=== PATIENT | female | born 1965 | race African-American/Black ===

== ENCOUNTER 2018-01-10 11:55 | Inpatient (IN) | payer MEDICAID, MEDICARE ==
[~2018-01-10] VITALS: Ht 165.1 cm; Wt 51.7 kg
[~2018-01-10 11:55] MED LIST: HYDROCHLOROTHIAZIDE
[2018-01-10 13:08] LABS: BASOPHILS % 0.8 % (0.0-2.0); EOSINOPHILS % 0.6 % (0.0-5.0); HEMATOCRIT. 34.6 % (36.0-48.0); HEMOGLOBIN. 11.8 g/dL (12.0-16.0); LYMPHOCYTES % 18.8 % (20.0-50.0); MEAN CORPUSCULAR HEMOGLOBIN 35.3 pg (28.0-32.0); MEAN CORPUSCULAR VOLUME 103.5 fL (81.0-99.0); MEAN PLATELET VOLUME 7.8 fl (7.4-10.4); MONOCYTES % 13.4 % (2.0-8.0); NEUTROPHILS % 66.4 % (40.0-76.0); PLATELET 220 x1000/uL (130-400); RED BLOOD CELL COUNT 3.35 mill/uL (4.2-5.4); RED CELL DISTRIBUTION WIDTH 16.5 % (11.6-14.6)
[2018-01-10 13:12] LABS: INR 0.9; PROTHROMBIN TIME 9.1 sec (9.4-11.6)
[2018-01-10 13:22] LABS: CHLORIDE 97 mEq/L (98-107)
[2018-01-10] MEDS ORDERED: SODIUM CHLORIDE 0.9% 1,000 ML IV ONE ×2 (15:15)
[2018-01-10 16:30] LABS: BASOPHILS % 0.8 % (0.0-2.0); EOSINOPHILS % 0.7 % (0.0-5.0); HEMATOCRIT. 35.4 % (36.0-48.0); HEMOGLOBIN. 12.1 g/dL (12.0-16.0); LYMPHOCYTES % 21.8 % (20.0-50.0); MEAN CORPUSCULAR HEMOGLOBIN 35.7 pg (28.0-32.0); MEAN CORPUSCULAR VOLUME 104.5 fL (81.0-99.0); MEAN PLATELET VOLUME 8.2 fl (7.4-10.4); NEUTROPHILS % 64.7 % (40.0-76.0); PLATELET 217 x1000/uL (130-400); RED BLOOD CELL COUNT 3.39 mill/uL (4.2-5.4); RED CELL DISTRIBUTION WIDTH 16.4 % (11.6-14.6)
[2018-01-10 16:31] LABS: CHLORIDE 97 mEq/L (98-107)
[2018-01-10] MEDS ORDERED: IOHEXOL-300 100 ML BOTTLE ONE ×2 (16:51→20:07)
[2018-01-10] MEDS ORDERED: DIPHENHYDRAMINE 50MG/ML VIAL IV PRN (19:15)
[2018-01-10] MEDS ORDERED: NA PHOS,M-B/NA PHOS,DI-BA ENEMA 118ML PR PRN (19:15)
[2018-01-10] MEDS ORDERED: ACETAMINOPHEN 325MG TABLET PO PRN (19:15)
[2018-01-10] MEDS ORDERED: DOCUSATE SODIUM 100MG CAPSULE PO PRN (19:15)
[2018-01-10] MEDS ORDERED: ONDANSETRON HCL 4MG/2ML VIAL IV PRN (19:15)
[2018-01-10] MEDS ORDERED: MAGNESIUM/ALUMINUM HYDROXIDE/SIMETHICONE 30ML UDC PO PRN (19:15)
[2018-01-10] MEDS ORDERED: CLONIDINE 0.1MG TABLET PO PRN (19:15)
[2018-01-10] MEDS ORDERED: GUAIFENESIN 200MG/10ML SUGAR FREE UDC PO PRN (19:15)
[2018-01-10] MEDS ORDERED: NITROGLYCERIN 0.4MG TABLET SL SL PRN (19:15)
[2018-01-10] MEDS ORDERED: LORAZEPAM 0.5MG TABLET PO PRN (19:15)
[2018-01-10 20:11] LABS: PHENCYCLIDINE URINE SCREEN NEGATIVE (NEGATIVE)
[2018-01-10 20:12] LABS: *AMPHETAMINES SCREEN URINE NEGATIVE (NEGATIVE); *BARBITURATES SCREEN URINE NEGATIVE (NEGATIVE); *BENZODIAZEPINES SCREEN URINE NEGATIVE (NEGATIVE); *COCAINE SCREEN URINE NEGATIVE (NEGATIVE); CANNABINOID URINE SCREEN PRESUMTIVE POSITIVE (NEGATIVE); METHADONE URINE SCREEN NEGATIVE (NEGATIVE); OPIATES URINE SCREEN NEGATIVE (NEGATIVE)
[2018-01-10 20:15] LABS: HEPATITIS B SURFACE ANTIGEN NEGATIVE
[2018-01-10 20:43] LABS: HEPATITIS B CORE AB IGM NEGATIVE
[2018-01-10 20:44] LABS: HEPATITIS A AB IGM NEGATIVE (NEGATIVE)
[2018-01-10] MEDS ORDERED: ZOLPIDEM TARTRATE 5MG TABLET PO PRN (21:00)
[2018-01-10 23:29] LABS: TOTAL IRON BINDING CAPACITY 242 ug/dL (250-450)
[2018-01-10 23:44] LABS: FOLIC ACID (FOLATE) SERUM 6.1 ng/mL (>5.38)
[2018-01-11] MEDS ORDERED: KCL 20MEQ/100ML PREMIX 100 ML IV SCH (03:00)
[2018-01-11 04:00] VITALS: BP 111/68
[2018-01-11] MEDS: TRAMADOL 50MG TABLET PO PRN (04:27)
[2018-01-11] MEDS: SUCRALFATE 1 G/10 ML UDC PO SCH ×4 (06:28→21:54)
[2018-01-11 08:00] VITALS: BP 145/98
[2018-01-11] MEDS ORDERED: FAMOTIDINE 20MG TABLET PO SCH ×2 (09:00)
[2018-01-11] MEDS ORDERED: ENOXAPARIN 40MG/0.4ML SYR SUBCUT SCH (09:00)
[2018-01-11] MEDS: IPRATROPIUM/ALBUTEROL 0.5-3(2.5)MG/3ML NEB INH PRN (10:18)
[2018-01-11 12:00] VITALS: BP 112/78
[2018-01-11 16:00] VITALS: BP 96/55
[2018-01-11 20:00] VITALS: BP 102/64
[2018-01-11] MEDS: PANTOPRAZOLE SODIUM 40 MG/VIAL IV SCH (21:54)
[2018-01-12] VITALS: BP 110/62
[2018-01-12 04:00] VITALS: BP 97/60
[2018-01-12] MEDS: TRAMADOL 50MG TABLET PO PRN (05:12)
[2018-01-12] MEDS: SUCRALFATE 1 G/10 ML UDC PO SCH ×4 (07:10→21:12)
[2018-01-12 08:43] LABS: HEMATOCRIT 36.5 % (36.0-48.0); HEMOGLOBIN 12.3 g/dL (12.0-16.0); MEAN CORPUSCULAR HEMOGLOBIN 35.6 pg (28.0-32.0); MEAN CORPUSCULAR VOLUME 105.7 fL (81.0-99.0); PLATELET 223 x1000/uL (130-400); RED BLOOD CELL COUNT 3.46 mill/uL (4.2-5.4); RED CELL DISTRIBUTION WIDTH 15.9 % (11.6-14.6)
[2018-01-12 08:50] LABS: INR 0.9; PROTHROMBIN TIME 9.9 sec (9.4-11.6)
[2018-01-12] MEDS: PANTOPRAZOLE SODIUM 40 MG/VIAL IV SCH ×2 (09:40→21:12)
[2018-01-12 10:11] LABS: CHLORIDE 97 mEq/L (98-107)
[2018-01-12] MEDS ORDERED: STERILE WATER FOR INJECTION 10ML VIAL ONE (15:26)
[2018-01-12] MEDS ORDERED: SIMETHICONE 40 MG/0.6 ML 30ML ONE (15:26)
[2018-01-12] MEDS ORDERED: FENTANYL CITRATE/PF 50MCG/ML 2ML VIAL ONE (15:31)
[2018-01-12] MEDS ORDERED: MIDAZOLAM HCL 5 MG/5 ML VIAL ONE (15:31)
[2018-01-12] MEDS ORDERED: MIDAZOLAM HCL 2 MG/2 ML VIAL IV PRN (15:32)
[2018-01-12] MEDS ORDERED: FENTANYL CITRATE/PF 50MCG/ML 2ML VIAL IV PRN (15:33)
[2018-01-12 20:00] VITALS: BP 100/60
[2018-01-13] VITALS: BP 110/60
[2018-01-13] MEDS: TRAMADOL 50MG TABLET PO PRN (02:12)
[2018-01-13 04:00] VITALS: BP 106/77
[2018-01-13] MEDS: IPRATROPIUM/ALBUTEROL 0.5-3(2.5)MG/3ML NEB INH PRN (05:32)
[2018-01-13] MEDS: SUCRALFATE 1 G/10 ML UDC PO SCH (06:25)
[2018-01-13 11:24] VITALS: BP 124/82
== END 2018-01-13 11:39 | disposition home or self-care (01) | DRG 241 ==
LOC: ER 11:55 → 6EST 17:48 → EDBEDREQ 18:02 → ENRESERV 18:35 → EDBEDREQSVC 20:16 → SUPCPDRO 22:31 → ENRESERV 01-11 00:02 → EDBEDREQSVC 01-11 01:52
PROVIDERS: ADMIT Internal Medicine; ATTEND Internal Medicine
PROC: 0DB48ZX Excision of Esophagogastric Junction, Via Natural or Artificial Opening Endoscopic, Diagnostic (ICD-10-PCS; principal; 2018-01-12 16:30)
DX: K29.70 Gastritis, unspecified, without bleeding (principal); N17.9 Acute kidney failure, unspecified; K76.0 Fatty (change of) liver, not elsewhere classified; R13.10 Dysphagia, unspecified; F20.9 Schizophrenia, unspecified; I10 Essential (primary) hypertension; D50.9 Iron deficiency anemia, unspecified; F10.10 Alcohol abuse, uncomplicated; R74.0 Nonspecific elevation of levels of transaminase and lactic acid dehydrogenase [LDH]; E87.6 Hypokalemia; J45.909 Unspecified asthma, uncomplicated; K70.9 Alcoholic liver disease, unspecified; D25.9 Leiomyoma of uterus, unspecified; F17.210 Nicotine dependence, cigarettes, uncomplicated; Z90.49 Acquired absence of other specified parts of digestive tract; Z79.899 Other long term (current) drug therapy; Z71.6 Tobacco abuse counseling; Z71.89 Other specified counseling
CPT/HCPCS: 36415; 70360; 71045; 71260; 74177; 80048; 80053; 80061; 80305; 82607; 82746; 83036; 83540; 83550; 85025; 85027; 85610; 85730; 86703; 86705; 86709; 86803; 87340; 88305; 88312; 88313; 93005; 96365; 99285; A4216; C9113; G0482; J1200; J1650; J2250; J2405; J3010; J3480; J7030; J7620; Q9967

== ENCOUNTER 2018-08-16 20:18 | Emergency (ER) | payer MEDICARE, MEDICAID ==
[~2018-08-16] VITALS: Ht 167.6 cm; Wt 59.0 kg
[2018-08-17] MEDS ORDERED: HYDROCODONE/ACETAMINOPHEN 5/325MG TABLET PO ONE (04:30)
[2018-08-17 06:00] VITALS: BP 138/92
== END 2018-08-17 06:29 | disposition home or self-care (01) ==
LOC: ER 20:18
DX: M25.562 Pain in left knee (principal); I10 Essential (primary) hypertension; W01.0XXA Fall on same level from slipping, tripping and stumbling without subsequent striking against object, initial encounter; Y93.9 Activity, unspecified; Y92.9 Unspecified place or not applicable
CPT/HCPCS: 73562; 81025; 99283; L1830

== ENCOUNTER 2019-01-10 16:58 | Emergency (ER) | payer MEDICARE, MEDICAID ==
[~2019-01-10] VITALS: Ht 165.1 cm; Wt 63.0 kg
[~2019-01-10 16:58] MED LIST changes: +MIRT15TA6 MT; +RISP0.5T19 MT
[2019-01-10] MEDS ORDERED: IBUPROFEN 600MG TABLET PO ONE (18:30)
[2019-01-10 18:40] VITALS: BP 161/118
== END 2019-01-10 19:27 | disposition home or self-care (01) ==
LOC: ER 16:58
DX: S99.822A Other specified injuries of left foot, initial encounter (principal); I10 Essential (primary) hypertension; Y93.11 Activity, swimming; Y92.832 Beach as the place of occurrence of the external cause; Z88.8 Allergy status to other drugs, medicaments and biological substances
CPT/HCPCS: 73630; 99283

== ENCOUNTER 2019-07-08 09:27 | Emergency (ER) | payer MEDICARE, MEDICAID ==
[~2019-07-08] VITALS: Ht 152.4 cm; Wt 65.0 kg
[2019-07-08 10:05] VITALS: BP 144/93
[2019-07-08] MEDS ORDERED: ACETAMINOPHEN 500MG TABLET PO ONE (10:45)
== END 2019-07-08 11:11 | disposition home or self-care (01) ==
LOC: ER 09:27
DX: M25.461 Effusion, right knee (principal); I10 Essential (primary) hypertension; Z88.8 Allergy status to other drugs, medicaments and biological substances; X50.1XXA Overexertion from prolonged static or awkward postures, initial encounter; Y93.41 Activity, dancing; Y92.018 Other place in single-family (private) house as the place of occurrence of the external cause
CPT/HCPCS: 73562; 99283

== ENCOUNTER 2019-12-19 11:54 | Emergency (ER) | payer MEDICARE, MEDICAID ==
[~2019-12-19] VITALS: Ht 165.1 cm; Wt 60.0 kg
[2019-12-19] MEDS ORDERED: CYCLOBENZAPRINE 10MG TABLET PO ONE (12:15)
[2019-12-19] MEDS ORDERED: KETOROLAC 60MG/2ML VIAL IM STA (12:15)
[2019-12-19 12:35] VITALS: BP 116/89
[2019-12-19 13:08] LABS: CLARITY URINE CLEAR (CLEAR); COLOR URINE YELLOW (YELLOW); KETONES URINE NEGATIVE (NEGATIVE); LEUKOCYTE ESTERASE URINE TRACE (NEGATIVE); NITRITE URINE POSITIVE (NEGATIVE); OCCULT BLOOD URINE NEGATIVE (NEGATIVE); PROTEIN URINE NEGATIVE (NEGATIVE); SPECIFIC GRAVITY URINE 1.009 (1.005-1.030); UROBILINOGEN URINE 0.2 E.U./dL (0.2-1.0)
== END 2019-12-19 13:35 | disposition home or self-care (01) ==
LOC: ER 11:54
DX: S39.011A Strain of muscle, fascia and tendon of abdomen, initial encounter (principal); X50.3XXA Overexertion from repetitive movements, initial encounter; X50.1XXA Overexertion from prolonged static or awkward postures, initial encounter; I10 Essential (primary) hypertension; F32.9 Major depressive disorder, single episode, unspecified; Y93.89 Activity, other specified; Y92.9 Unspecified place or not applicable; Z88.8 Allergy status to other drugs, medicaments and biological substances; Z98.890 Other specified postprocedural states
CPT/HCPCS: 81003; 96372; 99283; J1885

== ENCOUNTER 2020-01-22 17:01 | Inpatient (IN) | payer MEDICARE, MEDICAID ==
[~2020-01-22] VITALS: Ht 165.1 cm; Wt 55.0 kg
[2020-01-22] MEDS ORDERED: ONDANSETRON HCL 4MG/2ML INJ IV ONE (18:00)
[2020-01-22] MEDS ORDERED: SODIUM CHLORIDE 0.9% 1,000 ML IV ONE (18:25)
[2020-01-22] MEDS ORDERED: MORPHINE SULFATE 4 MG/ML CPJ (NOT FOR IM USE) IV STA (18:25)
[2020-01-22] MEDS ORDERED: ONDANSETRON HCL 4MG/2ML INJ IV STA (18:25)
[2020-01-22] MEDS ORDERED: FAMOTIDINE 20MG/2ML VIAL IV STA (18:25)
[2020-01-22 18:37] LABS: CLARITY URINE CLOUDY (CLEAR); COLOR URINE DARK YELLOW (YELLOW); KETONES URINE TRACE (NEGATIVE); LEUKOCYTE ESTERASE URINE TRACE (NEGATIVE); NITRITE URINE POSITIVE (NEGATIVE); OCCULT BLOOD URINE 1+ (NEGATIVE); PH URINE 5.5 (4.5-8.0); PROTEIN URINE 3+ (NEGATIVE)
[2020-01-22 18:59] LABS: BASOPHILS % 0.5 % (0.0-2.0); HEMATOCRIT. 38.2 % (36.0-48.0); HEMOGLOBIN. 13.2 g/dL (12.0-16.0); LYMPHOCYTES % 14.4 % (20.0-50.0); MEAN CORPUSCULAR VOLUME 104.1 fL (81.0-99.0); MONOCYTES % 7.6 % (2.0-8.0); NEUTROPHILS % 77.5 % (40.0-76.0); PLATELET 200 x1000/uL (130-400); RED BLOOD CELL COUNT 3.67 mill/uL (4.2-5.4); RED CELL DISTRIBUTION WIDTH 16.2 % (11.6-14.6)
[2020-01-22 19:05] LABS: CHLORIDE 92 mEq/L (98-107)
[2020-01-22 19:09] LABS: INR 0.9; PROTHROMBIN TIME 9.8 sec (9.6-11.0)
[2020-01-22] MEDS ORDERED: KCL 10MEQ/50ML PREMIX 50 ML IV ONE (19:30)
[2020-01-22] MEDS ORDERED: POTASSIUM CHLORIDE 20MEQ TABLET SR PO ONE (19:30)
[2020-01-22] MEDS ORDERED: CEFTRIAXONE 1 G PREMIX 50 ML IV ONE (21:15)
[2020-01-22] MEDS ORDERED: ONDANSETRON HCL 4MG/2ML INJ IV NR (22:45)
[2020-01-22] MEDS ORDERED: FAMOTIDINE 20MG/2ML VIAL IV NR (22:45)
[2020-01-22] MEDS ORDERED: MORPHINE SULFATE 4 MG/ML CPJ (NOT FOR IM USE) IV NR (22:45)
[2020-01-22 23:25] VITALS: BP 151/99
[2020-01-23] MEDS ORDERED: IBUP-2030 PO (00:18)
[2020-01-23] MEDS ORDERED: ESCI10TA PO (00:18)
[2020-01-23] MEDS ORDERED: HYDR25TA PO (00:18)
[2020-01-23] MEDS ORDERED: NAPR-681 PO (00:18)
[2020-01-23] MEDS: FOLIC ACID 1 MG, THIAMINE HCL 100 MG, MVI, ADULT NO.1 10 ML in DEXTROSE 5% WATER 1,000 ML IV SCH ×4 (03:12)
[2020-01-23 04:00] VITALS: BP 148/78
[2020-01-23] MEDS: MORPHINE SULFATE 2 MG/ML CPJ (NOT FOR IM USE) IV PRN ×2 (06:04→21:24)
[2020-01-23 07:09] LABS: HEMATOCRIT 34.1 % (36.0-48.0); HEMOGLOBIN 11.6 g/dL (12.0-16.0); MEAN CORPUSCULAR HEMOGLOBIN 35.3 pg (28.0-32.0); MEAN CORPUSCULAR VOLUME 103.3 fL (81.0-99.0); PLATELET 156 x1000/uL (130-400); RED CELL DISTRIBUTION WIDTH 15.7 % (11.6-14.6)
[2020-01-23 07:22] LABS: CHLORIDE 95 mEq/L (98-107)
[2020-01-23 07:45] LABS: AMYLASE 600 IU/L (25-115)
[2020-01-23 07:47] LABS: HDL CHOLESTEROL 108 mg/dL (40-59)
[2020-01-23 07:49] LABS: LDL CHOLESTEROL 38 mg/dL (5-100)
[2020-01-23 08:00] VITALS: BP 141/92
[2020-01-23] MEDS: ONDANSETRON HCL 4MG/2ML INJ IV PRN ×2 (08:19→13:29)
[2020-01-23] MEDS: CITALOPRAM HYDROBROMIDE 10MG TABLET PO SCH (08:29)
[2020-01-23] MEDS: HYDROCHLOROTHIAZIDE 25MG TABLET PO SCH (08:29)
[2020-01-23] MEDS ORDERED: POTASSIUM CHLORIDE 20MEQ TABLET SR PO NR (08:30)
[2020-01-23] MEDS ORDERED: ENOXAPARIN 30MG/0.3ML SYR SUBCUT SCH (09:00)
[2020-01-23 11:17] LABS: *BARBITURATES SCREEN URINE NEGATIVE (NEGATIVE); *BENZODIAZEPINES SCREEN URINE NEGATIVE (NEGATIVE); *COCAINE SCREEN URINE NEGATIVE (NEGATIVE)
[2020-01-23 11:18] LABS: *AMPHETAMINES SCREEN URINE NEGATIVE (NEGATIVE); CANNABINOID URINE SCREEN PRESUMTIVE POSITIVE (NEGATIVE); METHADONE URINE SCREEN NEGATIVE (NEGATIVE); OPIATES URINE SCREEN PRESUMTIVE POSITIVE (NEGATIVE); PHENCYCLIDINE URINE SCREEN NEGATIVE (NEGATIVE)
[2020-01-23] MEDS: DEXT 5%/0.45% NACL KCL 20MEQ/L 1,000 ML IV SCH ×2 (11:53→19:51)
[2020-01-23] MEDS: PANTOPRAZOLE SODIUM 40 MG/VIAL IV SCH (11:54)
[2020-01-23 12:00] VITALS: BP 155/101
[2020-01-23] MEDS: LORAZEPAM 2MG/ML CPJ IV PRN (14:22)
[2020-01-23 16:00] VITALS: BP 158/100
[2020-01-23 16:30] VITALS: BP 158/100
[2020-01-23] MEDS: AMLODIPINE 10MG TABLET PO SCH (18:20)
[2020-01-23 20:00] VITALS: BP 143/89
[2020-01-23] MEDS: CEFTRIAXONE 1,000 MG in DEXTROSE 5% WATER 50 ML IV SCH (23:28)
[2020-01-24] VITALS (7 sets, daily range): BP systolic 108–159; BP diastolic 65–100
[2020-01-24] MEDS: DEXT 5%/0.45% NACL KCL 20MEQ/L 1,000 ML IV SCH (03:23)
[2020-01-24] MEDS: MORPHINE SULFATE 2 MG/ML CPJ (NOT FOR IM USE) IV PRN ×2 (04:37→08:40)
[2020-01-24 08:38] LABS: BASOPHILS % 0.1 % (0.0-2.0); EOSINOPHILS % 0.1 % (0.0-5.0); HEMATOCRIT. 30.7 % (36.0-48.0); HEMOGLOBIN. 10.7 g/dL (12.0-16.0); LYMPHOCYTES % 9.6 % (20.0-50.0); MEAN CORPUSCULAR HEMOGLOBIN 35.9 pg (28.0-32.0); MEAN CORPUSCULAR VOLUME 102.9 fL (81.0-99.0); MEAN PLATELET VOLUME 8.8 fl (7.4-10.4); NEUTROPHILS % 78.2 % (40.0-76.0); PLATELET 134 x1000/uL (130-400); RED BLOOD CELL COUNT 2.99 mill/uL (4.2-5.4); RED CELL DISTRIBUTION WIDTH 15.2 % (11.6-14.6)
[2020-01-24] MEDS: CITALOPRAM HYDROBROMIDE 10MG TABLET PO SCH (08:38)
[2020-01-24] MEDS: PANTOPRAZOLE SODIUM 40 MG/VIAL IV SCH (08:38)
[2020-01-24] MEDS: ENOXAPARIN 40MG/0.4ML SYR SUBCUT SCH (08:38)
[2020-01-24] MEDS: AMLODIPINE 10MG TABLET PO SCH (08:39)
[2020-01-24] MEDS: HYDROCHLOROTHIAZIDE 25MG TABLET PO SCH (08:39)
[2020-01-24 08:52] LABS: CHLORIDE 95 mEq/L (98-107)
[2020-01-24] MEDS: FOLIC ACID 1 MG, THIAMINE HCL 100 MG, MVI, ADULT NO.1 10 ML in DEXTROSE 5% WATER 1,000 ML IV SCH ×4 (12:24)
[2020-01-24] MEDS ORDERED: POTASSIUM CHLORIDE 20MEQ TABLET SR PO NR (12:30)
[2020-01-24] MEDS: LORAZEPAM 2MG/ML CPJ IV PRN (21:23)
[2020-01-24] MEDS: CEFTRIAXONE 1,000 MG in DEXTROSE 5% WATER 50 ML IV SCH (23:38)
[2020-01-25] VITALS: BP 155/96
[2020-01-25 04:00] VITALS: BP 139/95
[2020-01-25 07:00] LABS: BASOPHILS % 0.3 % (0.0-2.0); CHLORIDE 93 mEq/L (98-107); EOSINOPHILS % 0.1 % (0.0-5.0); HEMATOCRIT. 29.5 % (36.0-48.0); HEMOGLOBIN. 10.2 g/dL (12.0-16.0); LYMPHOCYTES % 10.8 % (20.0-50.0); MEAN CORPUSCULAR HEMOGLOBIN 35.5 pg (28.0-32.0); MEAN CORPUSCULAR VOLUME 103.1 fL (81.0-99.0); MEAN PLATELET VOLUME 8.9 fl (7.4-10.4); MONOCYTES % 14.9 % (2.0-8.0); NEUTROPHILS % 73.9 % (40.0-76.0); PLATELET 138 x1000/uL (130-400); RED BLOOD CELL COUNT 2.86 mill/uL (4.2-5.4)
[2020-01-25] MEDS: DEXT 5%/0.45% NACL KCL 20MEQ/L 1,000 ML IV SCH ×4 (07:43→19:00)
[2020-01-25 08:00] VITALS: BP 122/90
[2020-01-25] MEDS ORDERED: POTASSIUM CHLORIDE INJ 60 MEQ in DEXT 5% WATER 500 ML IV SCH (09:00)
[2020-01-25] MEDS: PANTOPRAZOLE SODIUM 40 MG/VIAL IV SCH (09:30)
[2020-01-25] MEDS: ENOXAPARIN 40MG/0.4ML SYR SUBCUT SCH (09:30)
[2020-01-25] MEDS: CITALOPRAM HYDROBROMIDE 10MG TABLET PO SCH (09:31)
[2020-01-25] MEDS: HYDROCHLOROTHIAZIDE 25MG TABLET PO SCH (09:31)
[2020-01-25] MEDS: FOLIC ACID 1 MG, THIAMINE HCL 100 MG, MVI, ADULT NO.1 10 ML in DEXTROSE 5% WATER 1,000 ML IV SCH ×4 (09:31)
[2020-01-25] MEDS: AMLODIPINE 10MG TABLET PO SCH (09:31)
[2020-01-25] MEDS: METRONIDAZOLE 500 MG PREMIX 100 ML IV SCH ×3 (11:45→22:07)
[2020-01-25 12:00] VITALS: BP 120/90
[2020-01-25 16:00] VITALS: BP 134/95
[2020-01-25 20:00] VITALS: BP 124/80
[2020-01-25] MEDS: MORPHINE SULFATE 2 MG/ML CPJ (NOT FOR IM USE) IV PRN (22:07)
[2020-01-25] MEDS: CEFTRIAXONE 1,000 MG in DEXTROSE 5% WATER 50 ML IV SCH (23:08)
[2020-01-26] VITALS: BP 117/78
[2020-01-26] MEDS: DEXT 5%/0.45% NACL KCL 20MEQ/L 1,000 ML IV SCH ×2 (02:19→11:00)
[2020-01-26 04:00] VITALS: BP 116/79
[2020-01-26] MEDS: METRONIDAZOLE 500 MG PREMIX 100 ML IV SCH ×3 (06:22→20:31)
[2020-01-26 06:35] LABS: HEMATOCRIT. 27.2 % (36.0-48.0); HEMOGLOBIN. 9.3 g/dL (12.0-16.0); MEAN CORPUSCULAR HEMOGLOBIN 35.1 pg (28.0-32.0); MEAN CORPUSCULAR VOLUME 102.5 fL (81.0-99.0); MEAN PLATELET VOLUME 8.4 fl (7.4-10.4); PLATELET 163 x1000/uL (130-400); RED BLOOD CELL COUNT 2.65 mill/uL (4.2-5.4); RED CELL DISTRIBUTION WIDTH 15.1 % (11.6-14.6)
[2020-01-26 06:38] LABS: CHLORIDE 92 mEq/L (98-107)
[2020-01-26 06:54] LABS: TOTAL IRON BINDING CAPACITY 214 ug/dL (250-450)
[2020-01-26 07:03] LABS: FERRITIN 824 ng/mL (10-291)
[2020-01-26 07:17] LABS: VITAMIN B12 SERUM 606 pg/mL (211-911)
[2020-01-26 08:00] VITALS: BP 160/77
[2020-01-26] MEDS: ENOXAPARIN 40MG/0.4ML SYR SUBCUT SCH (09:16)
[2020-01-26] MEDS: CITALOPRAM HYDROBROMIDE 10MG TABLET PO SCH (09:16)
[2020-01-26] MEDS: HYDROCHLOROTHIAZIDE 25MG TABLET PO SCH (09:17)
[2020-01-26] MEDS: AMLODIPINE 10MG TABLET PO SCH (09:17)
[2020-01-26] MEDS: PANTOPRAZOLE SODIUM 40 MG/VIAL IV SCH (09:18)
[2020-01-26] MEDS: FOLIC ACID 1 MG, THIAMINE HCL 100 MG, MVI, ADULT NO.1 10 ML in DEXTROSE 5% WATER 1,000 ML IV SCH ×4 (09:19)
[2020-01-26 11:55] LABS: PLATELET ESTIMATE NORMAL
[2020-01-26 12:00] VITALS: BP 104/72
[2020-01-26] MEDS ORDERED: POTASSIUM CHLORIDE 20MEQ TABLET SR PO SCH (12:00)
[2020-01-26] MEDS: CHLORDIAZEPOXIDE 25MG CAPSULE PO SCH ×2 (13:19→20:02)
[2020-01-26 16:00] VITALS: BP 115/73
[2020-01-26 20:00] VITALS: BP 120/82
[2020-01-26] MEDS: LORAZEPAM 2MG/ML CPJ IV PRN (20:03)
[2020-01-26] MEDS: IRON SUCROSE COMPLEX 100 MG/5 ML ML IV SCH (20:26)
[2020-01-27] VITALS: BP 121/86
[2020-01-27] MEDS: CEFTRIAXONE 1,000 MG in DEXTROSE 5% WATER 50 ML IV SCH ×2 (00:11→23:19)
[2020-01-27 04:00] VITALS: BP 116/77
[2020-01-27 06:47] LABS: HEMATOCRIT. 26.1 % (36.0-48.0); MEAN CORPUSCULAR HEMOGLOBIN 35.4 pg (28.0-32.0); MEAN CORPUSCULAR VOLUME 102.7 fL (81.0-99.0); MEAN PLATELET VOLUME 8.1 fl (7.4-10.4); PLATELET 193 x1000/uL (130-400); RED BLOOD CELL COUNT 2.54 mill/uL (4.2-5.4); RED CELL DISTRIBUTION WIDTH 15.1 % (11.6-14.6)
[2020-01-27] MEDS: CHLORDIAZEPOXIDE 25MG CAPSULE PO SCH ×3 (07:02→21:56)
[2020-01-27] MEDS: METRONIDAZOLE 500 MG PREMIX 100 ML IV SCH ×3 (07:04→21:56)
[2020-01-27 07:07] LABS: CHLORIDE 97 mEq/L (98-107)
[2020-01-27 08:00] VITALS: BP 126/83
[2020-01-27 09:06] LABS: FOLATE HEMATOCRIT 25.8 % (34.0-46.6)
[2020-01-27 09:31] LABS: PLATELET ESTIMATE NORMAL
[2020-01-27] MEDS: PANTOPRAZOLE SODIUM 40 MG/VIAL IV SCH (09:44)
[2020-01-27] MEDS: FOLIC ACID 1 MG, THIAMINE HCL 100 MG, MVI, ADULT NO.1 10 ML in DEXTROSE 5% WATER 1,000 ML IV SCH ×4 (09:49)
[2020-01-27] MEDS: ENOXAPARIN 40MG/0.4ML SYR SUBCUT SCH (09:49)
[2020-01-27] MEDS: CITALOPRAM HYDROBROMIDE 10MG TABLET PO SCH (09:50)
[2020-01-27] MEDS: HYDROCHLOROTHIAZIDE 25MG TABLET PO SCH (09:51)
[2020-01-27] MEDS: AMLODIPINE 10MG TABLET PO SCH (09:51)
[2020-01-27] MEDS ORDERED: POTASSIUM CHLORIDE INJ 60 MEQ in DEXT 5% WATER 500 ML IV SCH (11:00)
[2020-01-27] MEDS: DEXT 5%/0.45% NACL KCL 20MEQ/L 1,000 ML IV SCH (11:50)
[2020-01-27 12:00] VITALS: BP 109/79
[2020-01-27] MEDS ORDERED: POTASSIUM CHLORIDE 20MEQ TABLET SR PO SCH (13:00)
[2020-01-27 16:00] VITALS: BP 102/69
[2020-01-27 20:00] VITALS: BP 105/72
[2020-01-27] MEDS ORDERED: POTASSIUM CHLORIDE 20MEQ TABLET SR PO NR ×2 (20:00→23:00)
[2020-01-27] MEDS: IRON SUCROSE COMPLEX 100 MG/5 ML ML IV SCH (20:32)
[2020-01-28] VITALS: BP 120/81
[2020-01-28] MEDS: ONDANSETRON HCL 4MG/2ML INJ IV PRN ×2 (01:20→21:04)
[2020-01-28] MEDS: DEXT 5%/0.45% NACL KCL 20MEQ/L 1,000 ML IV SCH ×2 (01:21→15:11)
[2020-01-28 04:00] VITALS: BP 147/89
[2020-01-28] MEDS: METRONIDAZOLE 500 MG PREMIX 100 ML IV SCH ×3 (05:55→21:03)
[2020-01-28] MEDS: CHLORDIAZEPOXIDE 25MG CAPSULE PO SCH ×3 (05:55→21:05)
[2020-01-28 06:18] LABS: HEMATOCRIT. 28.2 % (36.0-48.0); HEMOGLOBIN. 9.6 g/dL (12.0-16.0); MEAN CORPUSCULAR HEMOGLOBIN 35.2 pg (28.0-32.0); MEAN CORPUSCULAR VOLUME 103.1 fL (81.0-99.0); MEAN PLATELET VOLUME 7.8 fl (7.4-10.4); PLATELET 262 x1000/uL (130-400); RED BLOOD CELL COUNT 2.73 mill/uL (4.2-5.4); RED CELL DISTRIBUTION WIDTH 15.4 % (11.6-14.6)
[2020-01-28 06:31] LABS: CHLORIDE 101 mEq/L (98-107)
[2020-01-28 07:45] VITALS: BP 107/76
[2020-01-28] MEDS: PANTOPRAZOLE SODIUM 40 MG/VIAL IV SCH (09:39)
[2020-01-28] MEDS: ENOXAPARIN 40MG/0.4ML SYR SUBCUT SCH (09:39)
[2020-01-28] MEDS: HYDROCHLOROTHIAZIDE 25MG TABLET PO SCH (09:39)
[2020-01-28] MEDS: CITALOPRAM HYDROBROMIDE 10MG TABLET PO SCH (09:39)
[2020-01-28] MEDS: AMLODIPINE 10MG TABLET PO SCH (09:39)
[2020-01-28 12:01] VITALS: BP 122/87
[2020-01-28 13:11] LABS: FOLATE RBC 767 ng/mL (>498)
[2020-01-28 13:50] LABS: PLATELET ESTIMATE NORMAL
[2020-01-28] MEDS ORDERED: THIA100T88 MT (15:14)
[2020-01-28] MEDS ORDERED: MULT-1116 MT (15:14)
[2020-01-28] MEDS ORDERED: HYDR25TA PO (15:14)
[2020-01-28 15:42] VITALS: BP 136/98
[2020-01-28 20:00] VITALS: BP 117/85
[2020-01-28] MEDS: CEFTRIAXONE 1,000 MG in DEXTROSE 5% WATER 50 ML IV SCH (22:11)
[2020-01-29 00:02] VITALS: BP 116/80
[2020-01-29] MEDS: DEXT 5%/0.45% NACL KCL 20MEQ/L 1,000 ML IV SCH ×2 (03:06→17:23)
[2020-01-29 04:00] VITALS: BP 135/80
[2020-01-29] MEDS: METRONIDAZOLE 500 MG PREMIX 100 ML IV SCH ×3 (05:17→21:58)
[2020-01-29] MEDS: CHLORDIAZEPOXIDE 25MG CAPSULE PO SCH ×3 (05:18→21:56)
[2020-01-29 08:00] VITALS: BP 126/84
[2020-01-29] MEDS: CITALOPRAM HYDROBROMIDE 10MG TABLET PO SCH (09:49)
[2020-01-29] MEDS: HYDROCHLOROTHIAZIDE 25MG TABLET PO SCH (09:50)
[2020-01-29] MEDS: AMLODIPINE 10MG TABLET PO SCH (09:50)
[2020-01-29] MEDS: ENOXAPARIN 40MG/0.4ML SYR SUBCUT SCH (09:52)
[2020-01-29] MEDS: PANTOPRAZOLE SODIUM 40 MG/VIAL IV SCH (09:54)
[2020-01-29 12:00] VITALS: BP 121/80
[2020-01-29 16:00] VITALS: BP 135/99
[2020-01-29 21:01] VITALS: BP 116/87
[2020-01-30 00:44] VITALS: BP 101/71
[2020-01-30 05:14] VITALS: BP 109/81
[2020-01-30] MEDS: CHLORDIAZEPOXIDE 25MG CAPSULE PO SCH ×2 (06:11→14:34)
[2020-01-30] MEDS: DEXT 5%/0.45% NACL KCL 20MEQ/L 1,000 ML IV SCH (06:15)
[2020-01-30 08:00] VITALS: BP 104/76
[2020-01-30] MEDS: HYDROCHLOROTHIAZIDE 25MG TABLET PO SCH (09:00)
[2020-01-30] MEDS: AMLODIPINE 10MG TABLET PO SCH (09:00)
[2020-01-30] MEDS: PANTOPRAZOLE SODIUM 40 MG/VIAL IV SCH (09:01)
[2020-01-30] MEDS: ENOXAPARIN 40MG/0.4ML SYR SUBCUT SCH (09:02)
[2020-01-30] MEDS: CITALOPRAM HYDROBROMIDE 10MG TABLET PO SCH (09:03)
[2020-01-30 12:00] VITALS: BP 112/85
[2020-01-30 13:32] VITALS: BP 112/85
[2020-01-30 16:00] VITALS: BP 116/81
== END 2020-01-30 16:30 | DRG 439 ==
LOC: ER 17:01 → 6WST 20:13 → ENRESERV 21:49 → 6WST 01-26 20:00
PROVIDERS: ADMIT Internal Medicine; ATTEND Internal Medicine
DX: K85.20 Alcohol induced acute pancreatitis without necrosis or infection (principal); N39.0 Urinary tract infection, site not specified; E87.1 Hypo-osmolality and hyponatremia; F10.239 Alcohol dependence with withdrawal, unspecified; E87.6 Hypokalemia; E87.8 Other disorders of electrolyte and fluid balance, not elsewhere classified; F12.90 Cannabis use, unspecified, uncomplicated; F17.210 Nicotine dependence, cigarettes, uncomplicated; K76.0 Fatty (change of) liver, not elsewhere classified; Y90.8 Blood alcohol level of 240 mg/100 ml or more; I10 Essential (primary) hypertension; D50.9 Iron deficiency anemia, unspecified; F10.229 Alcohol dependence with intoxication, unspecified; F32.9 Major depressive disorder, single episode, unspecified; Z78.1 Physical restraint status; Z90.49 Acquired absence of other specified parts of digestive tract; Z59.0 Homelessness; Z79.899 Other long term (current) drug therapy; R74.0 Nonspecific elevation of levels of transaminase and lactic acid dehydrogenase [LDH]
CPT/HCPCS: 36415; 74176; 80048; 80053; 80061; 80076; 80305; 80320; 81003; 82140; 82150; 82607; 82728; 82747; 82962; 83540; 83550; 84132; 84145; 85014; 85025; 85027; 93005; 97116; 97162; 99291; C9113; J0696; J1650; J2060; J2270; J2405; J3411; J3480; J3490; J7030; J7060; J7070; G0480

== ENCOUNTER 2020-02-15 19:50 | Emergency (ER) | payer MEDICARE, MEDICAID ==
[~2020-02-15] VITALS: Ht 162.6 cm; Wt 55.0 kg
[~2020-02-15 19:50] MED LIST changes: +ESCI10TA PO; +HYDR25TA PO; +IBUP-2030 PO; +MULT-1116 MT; +NAPR-681 PO; +THIA100T88 MT
[2020-02-16 00:41] LABS: BASOPHILS % 1.3 % (0.0-2.0); EOSINOPHILS % 1.3 % (0.0-5.0); HEMATOCRIT. 32.7 % (36.0-48.0); HEMOGLOBIN. 11.2 g/dL (12.0-16.0); LYMPHOCYTES % 37.6 % (20.0-50.0); MEAN PLATELET VOLUME 7.2 fl (7.4-10.4); MONOCYTES % 8.8 % (2.0-8.0); PLATELET 358 x1000/uL (130-400); RED BLOOD CELL COUNT 3.21 mill/uL (4.2-5.4); RED CELL DISTRIBUTION WIDTH 15.7 % (11.6-14.6)
[2020-02-16 00:44] LABS: CHLORIDE 106 mEq/L (98-107)
[2020-02-16] MEDS ORDERED: ONDANSETRON HCL 4MG/2ML INJ IV STA (06:22)
[2020-02-16] MEDS ORDERED: MORPHINE SULFATE 4 MG/ML CPJ (NOT FOR IM USE) IV STA (06:22)
[2020-02-16 09:48] VITALS: BP 127/87
== END 2020-02-16 12:29 | disposition home or self-care (01) ==
LOC: ER 19:50
DX: M25.552 Pain in left hip (principal); F32.9 Major depressive disorder, single episode, unspecified; I10 Essential (primary) hypertension; Z90.49 Acquired absence of other specified parts of digestive tract; F12.10 Cannabis abuse, uncomplicated; Z79.899 Other long term (current) drug therapy; Z88.8 Allergy status to other drugs, medicaments and biological substances
CPT/HCPCS: 36415; 72100; 73502; 73560; 80053; 85025; 93005; 99285

== ENCOUNTER 2020-05-22 08:37 | Emergency (ER) | payer MEDICARE, MEDICAID ==
[~2020-05-22] VITALS: Ht 172.7 cm; Wt 64.0 kg
[~2020-05-22 08:37] MED LIST changes: +HYDR-459 PO; -HYDR25TA PO; -HYDROCHLOROTHIAZIDE; -IBUP-2030 PO; -MIRT15TA6 MT; -NAPR-681 PO; -RISP0.5T19 MT
[2020-05-22] MEDS ORDERED: BACITRACIN ZINC OINT UDPKT TOP ONE (10:30)
[2020-05-22] MEDS ORDERED: LIDOCAINE HCL/PF 1% 10 MG/ML 5ML VIAL IJ ONE (10:30)
[2020-05-22] MEDS ORDERED: KETOROLAC 30MG/ML VIAL IM ONE (10:30)
[2020-05-22 12:30] VITALS: BP 138/90
== END 2020-05-22 13:20 | disposition home or self-care (01) ==
LOC: ER 08:37
DX: S01.511A Laceration without foreign body of lip, initial encounter (principal); F12.10 Cannabis abuse, uncomplicated; I10 Essential (primary) hypertension; Z79.899 Other long term (current) drug therapy; Z90.49 Acquired absence of other specified parts of digestive tract; Y04.0XXA Assault by unarmed brawl or fight, initial encounter; Y93.89 Activity, other specified; Y92.89 Other specified places as the place of occurrence of the external cause; Y99.8 Other external cause status
CPT/HCPCS: 12011; 71101; 73030; 96372; 99284; J1885; J3490

== ENCOUNTER 2020-06-30 14:21 | Emergency (ER) | payer MEDICAID, MEDICARE ==
[~2020-06-30] VITALS: Ht 165.1 cm; Wt 64.0 kg
[2020-06-30] MEDS ORDERED: PENICILLIN G BENZATHINE 1,200,000 UNITS/2ML SYR IM ONE (15:15)
[2020-06-30] MEDS ORDERED: TRAMADOL 50MG TABLET PO ONE (15:15)
[2020-06-30 16:15] VITALS: BP 143/104
== END 2020-06-30 16:29 | disposition home or self-care (01) ==
LOC: ER 14:21
DX: K05.219 Aggressive periodontitis, localized, unspecified severity (principal); F12.10 Cannabis abuse, uncomplicated; I10 Essential (primary) hypertension; Z86.59 Personal history of other mental and behavioral disorders; Z90.49 Acquired absence of other specified parts of digestive tract
CPT/HCPCS: 96372; 99283; J0561

== ENCOUNTER 2020-07-30 14:02 | Emergency (ER) | payer MEDICARE, MEDICAID ==
[~2020-07-30] VITALS: Ht 165.1 cm; Wt 63.0 kg
[2020-07-30 14:13] VITALS: BP 125/82
[2020-07-30] MEDS ORDERED: KETOROLAC 60MG/2ML VIAL IM STA (14:46)
== END 2020-07-30 18:17 | disposition home or self-care (01) ==
LOC: ER 14:08
DX: M25.462 Effusion, left knee (principal); M25.562 Pain in left knee; F31.9 Bipolar disorder, unspecified; F20.9 Schizophrenia, unspecified; I10 Essential (primary) hypertension; F12.10 Cannabis abuse, uncomplicated; Z90.49 Acquired absence of other specified parts of digestive tract; X50.1XXA Overexertion from prolonged static or awkward postures, initial encounter; Y93.89 Activity, other specified; Y92.018 Other place in single-family (private) house as the place of occurrence of the external cause
CPT/HCPCS: 73562; 96372; 99283; J1885; L1830

== ENCOUNTER 2020-08-14 05:28 | Emergency (ER) | payer MEDICARE, MEDICAID ==
[~2020-08-14] VITALS: Ht 165.1 cm; Wt 60.0 kg
[2020-08-14 06:06] VITALS: BP 165/98
[2020-08-14] MEDS ORDERED: IBUP-2029 MT (07:07)
[2020-08-14] MEDS ORDERED: AMOX-424 MT (07:07)
== END 2020-08-14 07:23 | disposition home or self-care (01) ==
LOC: ER 05:28
DX: S60.463A Insect bite (nonvenomous) of left middle finger, initial encounter (principal); F12.10 Cannabis abuse, uncomplicated; I10 Essential (primary) hypertension; Z90.49 Acquired absence of other specified parts of digestive tract; Z79.899 Other long term (current) drug therapy; W57.XXXA Bitten or stung by nonvenomous insect and other nonvenomous arthropods, initial encounter; Y93.89 Activity, other specified; Y92.89 Other specified places as the place of occurrence of the external cause; Y99.8 Other external cause status
CPT/HCPCS: 29130; 73140; 99283

== ENCOUNTER 2020-11-20 21:29 | Emergency (ER) | payer MEDICARE, MEDICAID ==
[~2020-11-20] VITALS: Ht 165.1 cm; Wt 52.3 kg
[~2020-11-20 21:29] MED LIST changes: +AMOX-424 MT; +IBUP-2029 MT
[2020-11-20] MEDS ORDERED: ONDANSETRON HCL 4MG/2ML INJ IV STA (22:43)
[2020-11-20] MEDS ORDERED: SODIUM CHLORIDE 0.9% 1,000 ML IV ONE (22:45)
[2020-11-20 23:52] LABS: BASOPHILS % 0.5 % (0.0-2.0); EOSINOPHILS % 1.5 % (0.0-5.0); HEMATOCRIT. 40.3 % (36.0-48.0); HEMOGLOBIN. 13.8 g/dL (12.0-16.0); LYMPHOCYTES % 25.9 % (20.0-50.0); MEAN CORPUSCULAR HEMOGLOBIN 35.8 pg (28.0-32.0); MEAN CORPUSCULAR VOLUME 104.6 fL (81.0-99.0); MEAN PLATELET VOLUME 7.3 fl (7.4-10.4); MONOCYTES % 9.1 % (2.0-8.0); PLATELET 344 x1000/uL (130-400); RED BLOOD CELL COUNT 3.86 mill/uL (4.2-5.4); RED CELL DISTRIBUTION WIDTH 16.2 % (11.6-14.6)
[2020-11-20 23:55] LABS: CLARITY URINE CLEAR (CLEAR); COLOR URINE YELLOW (YELLOW); KETONES URINE NEGATIVE (NEGATIVE); LEUKOCYTE ESTERASE URINE NEGATIVE (NEGATIVE); NITRITE URINE NEGATIVE (NEGATIVE); OCCULT BLOOD URINE NEGATIVE (NEGATIVE); PROTEIN URINE NEGATIVE (NEGATIVE); SPECIFIC GRAVITY URINE 1.012 (1.005-1.030); UROBILINOGEN URINE 0.2 E.U./dL (0.2-1.0)
[2020-11-21] MEDS ORDERED: OLANZAPINE 10 MG/VIAL IM NR
[2020-11-21 00:07] LABS: CHLORIDE 110 mEq/L (98-107)
[2020-11-21 00:10] LABS: *AMPHETAMINES SCREEN URINE NEGATIVE (NEGATIVE); *BARBITURATES SCREEN URINE NEGATIVE (NEGATIVE); *BENZODIAZEPINES SCREEN URINE NEGATIVE (NEGATIVE); *COCAINE SCREEN URINE NEGATIVE (NEGATIVE)
[2020-11-21 00:11] LABS: CANNABINOID URINE SCREEN NEGATIVE (NEGATIVE); METHADONE URINE SCREEN NEGATIVE (NEGATIVE); OPIATES URINE SCREEN NEGATIVE (NEGATIVE); PHENCYCLIDINE URINE SCREEN NEGATIVE (NEGATIVE)
[2020-11-21 00:11] LABS: ETHANOL BLOOD 286 mg/dL
[2020-11-21] MEDS ORDERED: LORAZEPAM 2MG/ML CPJ IV SCH (00:45)
[2020-11-21] MEDS ORDERED: AZIT250T12 MT (00:55)
[2020-11-21] MEDS ORDERED: AMOX-424 MT ×2 (00:55→11:35)
[2020-11-21 11:51] VITALS: BP 147/91
== END 2020-11-21 11:56 | disposition home or self-care (01) ==
LOC: ER 21:29
DX: J18.9 Pneumonia, unspecified organism (principal); T51.0X1A Toxic effect of ethanol, accidental (unintentional), initial encounter; R45.851 Suicidal ideations; I10 Essential (primary) hypertension; J45.909 Unspecified asthma, uncomplicated; F12.10 Cannabis abuse, uncomplicated; Z20.822 Contact with and (suspected) exposure to COVID-19; Y90.8 Blood alcohol level of 240 mg/100 ml or more; Z90.49 Acquired absence of other specified parts of digestive tract; Y92.89 Other specified places as the place of occurrence of the external cause
CPT/HCPCS: 36415; 71045; 80053; 80305; 80320; 81003; 83880; 84484; 85025; 96361; 96372; 96374; 99285; C9803; J2405; J3490; J7030; U0003; U0005; G0480

== ENCOUNTER 2020-12-03 13:59 | Inpatient (IN) | payer MEDICARE, MEDICAID ==
[~2020-12-03] VITALS: Ht 165.1 cm; Wt 59.4 kg
[~2020-12-03 13:59] MED LIST changes: +AZIT250T12 MT
[2020-12-03 14:58] LABS: BASOPHILS % 1.2 % (0.0-2.0); EOSINOPHILS % 1.8 % (0.0-5.0); HEMATOCRIT. 35.1 % (36.0-48.0); HEMOGLOBIN. 12.1 g/dL (12.0-16.0); LYMPHOCYTES % 39.6 % (20.0-50.0); MEAN CORPUSCULAR HEMOGLOBIN 35.2 pg (28.0-32.0); MEAN CORPUSCULAR VOLUME 101.8 fL (81.0-99.0); MONOCYTES % 8.4 % (2.0-8.0); PLATELET 361 x1000/uL (130-400); RED BLOOD CELL COUNT 3.45 mill/uL (4.2-5.4); RED CELL DISTRIBUTION WIDTH 15.1 % (11.6-14.6)
[2020-12-03 15:04] LABS: CHLORIDE 107 mEq/L (98-107)
[2020-12-03] MEDS ORDERED: ONDANSETRON HCL 4MG/2ML INJ IV PRN (18:15)
[2020-12-03] MEDS ORDERED: NITROGLYCERIN 0.4MG TABLET SL SL PRN (18:15)
[2020-12-03] MEDS ORDERED: GUAIFENESIN 200MG/10ML SUGAR FREE UDC PO PRN (18:15)
[2020-12-03] MEDS ORDERED: IPRATROPIUM/ALBUTEROL 0.5-3(2.5)MG/3ML NEB NEB PRN (18:15)
[2020-12-03] MEDS ORDERED: MAGNESIUM/ALUMINUM HYDROXIDE/SIMETHICONE 30ML UDC PO PRN (18:15)
[2020-12-03] MEDS ORDERED: CLONIDINE 0.1MG TABLET PO PRN (18:15)
[2020-12-03] MEDS ORDERED: DOCUSATE SODIUM 100MG CAPSULE PO PRN (18:15)
[2020-12-03] MEDS ORDERED: ACETAMINOPHEN 325MG TABLET PO PRN ×2 (18:15)
[2020-12-03] MEDS: ENOXAPARIN 40MG/0.4ML SYR SUBCUT SCH (20:00)
[2020-12-03] MEDS: AMLODIPINE 10MG TABLET PO SCH (20:21)
[2020-12-03 20:50] LABS: *COCAINE SCREEN URINE NEGATIVE (NEGATIVE); METHADONE URINE SCREEN NEGATIVE (NEGATIVE)
[2020-12-03 20:51] LABS: *AMPHETAMINES SCREEN URINE NEGATIVE (NEGATIVE); *BARBITURATES SCREEN URINE NEGATIVE (NEGATIVE); *BENZODIAZEPINES SCREEN URINE NEGATIVE (NEGATIVE); CANNABINOID URINE SCREEN PRESUMTIVE POSITIVE (NEGATIVE); OPIATES URINE SCREEN NEGATIVE (NEGATIVE); PHENCYCLIDINE URINE SCREEN NEGATIVE (NEGATIVE)
[2020-12-03] MEDS ORDERED: ZOLPIDEM TARTRATE 5MG TABLET PO PRN (21:00)
[2020-12-03] MEDS: FAMOTIDINE 20MG TABLET PO SCH (21:00)
[2020-12-03] MEDS: ASCORBIC ACID 500 MG TABLET PO SCH (21:00)
[2020-12-03 22:15] VITALS: BP 180/113
[2020-12-04 00:17] LABS: CREATINE KINASE 191 IU/L (26-192)
[2020-12-04 00:18] LABS: CREATINE KINASE MB FRACTION 2.3 ng/mL (0.5-3.6)
[2020-12-04 00:36] VITALS: BP 171/92
[2020-12-04 04:00] VITALS: BP 143/90
[2020-12-04] MEDS: KETOROLAC 15MG/ML VIAL IV PRN ×3 (06:30→21:10)
[2020-12-04 07:02] LABS: BASOPHILS % 1.1 % (0.0-2.0); EOSINOPHILS % 3.4 % (0.0-5.0); HEMATOCRIT. 36.5 % (36.0-48.0); HEMOGLOBIN. 12.5 g/dL (12.0-16.0); LYMPHOCYTES % 26.4 % (20.0-50.0); MEAN CORPUSCULAR HEMOGLOBIN 34.9 pg (28.0-32.0); MEAN CORPUSCULAR VOLUME 102.3 fL (81.0-99.0); MEAN PLATELET VOLUME 7.7 fl (7.4-10.4); MONOCYTES % 11.5 % (2.0-8.0); NEUTROPHILS % 57.6 % (40.0-76.0); PLATELET 361 x1000/uL (130-400); RED BLOOD CELL COUNT 3.57 mill/uL (4.2-5.4); RED CELL DISTRIBUTION WIDTH 15.2 % (11.6-14.6)
[2020-12-04 07:14] LABS: CHLORIDE 103 mEq/L (98-107)
[2020-12-04 07:20] LABS: PHOSPHORUS 4.1 mg/dL (2.5-4.9)
[2020-12-04 07:23] LABS: CREATINE KINASE 161 IU/L (26-192)
[2020-12-04 07:25] LABS: CREATINE KINASE MB FRACTION 1.7 ng/mL (0.5-3.6)
[2020-12-04 07:39] VITALS: BP 157/101
[2020-12-04] MEDS: AMLODIPINE 10MG TABLET PO SCH (08:12)
[2020-12-04] MEDS: CHOLECALCIFEROL (D3) 1000 UNIT TABLET PO SCH (08:12)
[2020-12-04] MEDS: ZINC SULFATE 220 MG ( 50 ) CAPSULE PO SCH (08:12)
[2020-12-04] MEDS: ASCORBIC ACID 500 MG TABLET PO SCH ×2 (08:12→20:33)
[2020-12-04] MEDS: FAMOTIDINE 20MG TABLET PO SCH ×2 (08:12→20:33)
[2020-12-04] MEDS: PREGABALIN 50 MG CAPSULE PO SCH ×2 (10:17→20:33)
[2020-12-04 12:00] VITALS: BP 140/94
[2020-12-04 16:00] VITALS: BP 132/87
[2020-12-04] MEDS ORDERED: MAGNESIUM 2 G PREMIX 50 ML IV NR (17:00)
[2020-12-04 19:53] VITALS: BP 152/113
[2020-12-04] MEDS: ENOXAPARIN 40MG/0.4ML SYR SUBCUT SCH (20:33)
[2020-12-05] VITALS: BP 143/88
[2020-12-05 04:00] VITALS: BP 125/90
[2020-12-05 07:47] VITALS: BP 148/100
[2020-12-05] MEDS: CHOLECALCIFEROL (D3) 1000 UNIT TABLET PO SCH (09:14)
[2020-12-05] MEDS: ASCORBIC ACID 500 MG TABLET PO SCH ×2 (09:14→20:35)
[2020-12-05] MEDS: FAMOTIDINE 20MG TABLET PO SCH ×2 (09:14→20:35)
[2020-12-05] MEDS: ZINC SULFATE 220 MG ( 50 ) CAPSULE PO SCH (09:14)
[2020-12-05] MEDS: PREGABALIN 50 MG CAPSULE PO SCH ×2 (09:15→20:35)
[2020-12-05] MEDS: AMLODIPINE 10MG TABLET PO SCH (09:15)
[2020-12-05 11:45] VITALS: BP 137/93
[2020-12-05 16:06] VITALS: BP 133/92
[2020-12-05 20:00] VITALS: BP 136/95
[2020-12-05] MEDS: ENOXAPARIN 40MG/0.4ML SYR SUBCUT SCH (20:35)
[2020-12-05] MEDS: KETOROLAC 15MG/ML VIAL IV PRN (20:36)
[2020-12-06] VITALS: BP 135/94
[2020-12-06 04:00] VITALS: BP 141/88
[2020-12-06 08:01] VITALS: BP 126/84
[2020-12-06] MEDS: ZINC SULFATE 220 MG ( 50 ) CAPSULE PO SCH (08:02)
[2020-12-06] MEDS: PREGABALIN 50 MG CAPSULE PO SCH (08:02)
[2020-12-06] MEDS: FAMOTIDINE 20MG TABLET PO SCH (08:02)
[2020-12-06] MEDS: AMLODIPINE 10MG TABLET PO SCH (08:02)
[2020-12-06] MEDS: TRAMADOL 50MG TABLET PO PRN ×2 (08:03→18:52)
[2020-12-06] MEDS: CHOLECALCIFEROL (D3) 1000 UNIT TABLET PO SCH (08:03)
[2020-12-06] MEDS: ASCORBIC ACID 500 MG TABLET PO SCH (08:03)
[2020-12-06 12:04] VITALS: BP 126/84
[2020-12-06] MEDS: KETOROLAC 15MG/ML VIAL IV PRN (13:37)
[2020-12-06 15:50] VITALS: BP 132/84
[2020-12-06 18:52] VITALS: BP 132/84
== END 2020-12-06 19:10 | DRG 305 ==
LOC: ER 13:59 → 6WST 16:28 → ENRESERV 20:40
PROVIDERS: ADMIT Internal Medicine; ATTEND Internal Medicine
DX: I16.1 Hypertensive emergency (principal); F10.229 Alcohol dependence with intoxication, unspecified; F17.210 Nicotine dependence, cigarettes, uncomplicated; F20.9 Schizophrenia, unspecified; R55 Syncope and collapse; I10 Essential (primary) hypertension; J45.909 Unspecified asthma, uncomplicated; Z90.49 Acquired absence of other specified parts of digestive tract
CPT/HCPCS: 36415; 71045; 80053; 80061; 80305; 80320; 82550; 82553; 82607; 82746; 83036; 83540; 83550; 83735; 83880; 84100; 84484; 85025; 93005; 93970; 97162; 97166; 99285; J1650; J1885; J3475; G0480

== ENCOUNTER 2021-02-08 08:41 | Inpatient (IN) | payer MEDICARE, MEDICAID ==
[~2021-02-08] VITALS: Ht 160 cm; Wt 63.0 kg
[~2021-02-08 08:41] MED LIST changes: -AMOX-424 MT; -AZIT250T12 MT
[2021-02-08] MEDS ORDERED: NITROGLYCERIN OINT 1GM/INCH UDPKT TD ONE (09:15)
[2021-02-08 09:51] LABS: HEMATOCRIT. 36.1 % (36.0-48.0); HEMOGLOBIN. 12.4 g/dL (12.0-16.0); MEAN CORPUSCULAR HEMOGLOBIN 34.6 pg (28.0-32.0); MEAN CORPUSCULAR VOLUME 100.7 fL (81.0-99.0); MEAN PLATELET VOLUME 8.7 fl (7.4-10.4); PLATELET 193 x1000/uL (130-400); RED BLOOD CELL COUNT 3.59 mill/uL (4.2-5.4); RED CELL DISTRIBUTION WIDTH 15.3 % (11.6-14.6)
[2021-02-08 09:55] LABS: CHLORIDE 100 mEq/L (98-107)
[2021-02-08 10:31] LABS: NUCLEATED RED BLOOD CELLS 1 /100 WBC; PLATELET ESTIMATE NORMAL
[2021-02-08] MEDS ORDERED: ONDANSETRON HCL 4MG/2ML INJ IV ONE (11:30)
[2021-02-08] MEDS ORDERED: SODIUM CHLORIDE 0.9% 1,000 ML IV ONE (11:30)
[2021-02-08] MEDS ORDERED: MORPHINE SULFATE 4 MG/ML CPJ (NOT FOR IM USE) IV ONE (11:45)
[2021-02-08] MEDS ORDERED: CEFTRIAXONE 1 G PREMIX 50 ML IV ONE (12:15)
[2021-02-08] MEDS ORDERED: AZITHROMYCIN 500 MG in DEXT 5% WATER 250 ML IV ONE (12:15)
[2021-02-08] MEDS ORDERED: DOCUSATE SODIUM 100MG CAPSULE PO PRN (15:15)
[2021-02-08] MEDS ORDERED: CLONIDINE 0.1MG TABLET PO PRN (15:15)
[2021-02-08] MEDS ORDERED: ONDANSETRON HCL 4MG/2ML INJ IV PRN (15:15)
[2021-02-08] MEDS ORDERED: IPRATROPIUM/ALBUTEROL 0.5-3(2.5)MG/3ML NEB NEB PRN (15:15)
[2021-02-08] MEDS ORDERED: MAGNESIUM/ALUMINUM HYDROXIDE/SIMETHICONE 30ML UDC PO PRN (15:15)
[2021-02-08] MEDS ORDERED: KCL 20MEQ/100ML PREMIX 100 ML IV NR (15:15)
[2021-02-08] MEDS ORDERED: NITROGLYCERIN 0.4MG TABLET SL SL PRN (15:15)
[2021-02-08] MEDS ORDERED: MVI, ADULT NO.1 10 ML, FOLIC ACID 1 MG, THIAMINE HCL 100 MG in SODIUM CHLORIDE 0.9% 1,0... IV SCH (15:15)
[2021-02-08] MEDS ORDERED: POTASSIUM CHLORIDE 20MEQ TABLET SR PO NR (15:15)
[2021-02-08] MEDS ORDERED: ACETAMINOPHEN 325MG TABLET PO PRN ×2 (15:15)
[2021-02-08] MEDS ORDERED: ALBUTEROL 6.7GM HFA INHALER ORI PRN (15:15)
[2021-02-08] MEDS ORDERED: GUAIFENESIN 200MG/10ML SUGAR FREE UDC PO PRN (15:15)
[2021-02-08 15:51] LABS: T4 FREE 0.87 ng/dL (0.76-1.46)
[2021-02-08] MEDS ORDERED: ENOXAPARIN 40MG/0.4ML SYR SUBCUT SCH (16:00)
[2021-02-08 17:07] LABS: FOLIC ACID (FOLATE) SERUM 4.5 ng/mL (>5.38)
[2021-02-08] MEDS: DILTIAZEM HCL 60MG TABLET PO SCH (19:09)
[2021-02-08] MEDS: ASCORBIC ACID 500 MG TABLET PO SCH (20:49)
[2021-02-08] MEDS: FAMOTIDINE 20MG TABLET PO SCH (20:49)
[2021-02-08] MEDS ORDERED: MAGNESIUM 4 G PREMIX 100 ML IV SCH (21:00)
[2021-02-08] MEDS ORDERED: ZOLPIDEM TARTRATE 5MG TABLET PO PRN (21:00)
[2021-02-08] MEDS: ALBUTEROL 6.7GM HFA INHALER ORI SCH (21:46)
[2021-02-08 23:13] LABS: CREATINE KINASE MB FRACTION 1.8 ng/mL (0.5-3.6)
[2021-02-09] VITALS (46 sets, daily range): BP systolic 0–156; BP diastolic 0–107
[2021-02-09] MEDS: ALBUTEROL 6.7GM HFA INHALER ORI SCH (01:55)
[2021-02-09] MEDS: KETOROLAC 15MG/ML VIAL IV PRN ×2 (03:56→10:04)
[2021-02-09 05:56] LABS: CHLORIDE 95 mEq/L (98-107)
[2021-02-09] MEDS: DILTIAZEM HCL 60MG TABLET PO SCH ×4 (06:00→18:00)
[2021-02-09 06:02] LABS: PHOSPHORUS 5.7 mg/dL (2.5-4.9)
[2021-02-09 06:04] LABS: CREATINE KINASE 608 IU/L (26-192)
[2021-02-09 06:07] LABS: CREATINE KINASE MB FRACTION 12.8 ng/mL (0.5-3.6)
[2021-02-09 06:24] LABS: HEMATOCRIT. 34.9 % (36.0-48.0); HEMOGLOBIN. 11.6 g/dL (12.0-16.0); MEAN CORPUSCULAR HEMOGLOBIN 34.2 pg (28.0-32.0); MEAN CORPUSCULAR VOLUME 102.5 fL (81.0-99.0); MEAN PLATELET VOLUME 8.5 fl (7.4-10.4); PLATELET 123 x1000/uL (130-400); RED CELL DISTRIBUTION WIDTH 15.7 % (11.6-14.6)
[2021-02-09] MEDS ORDERED: CEFTRIAXONE 1,000 MG in DEXTROSE 5% WATER 50 ML IV SCH (08:00)
[2021-02-09] MEDS ORDERED: POTASSIUM CHLORIDE 20MEQ TABLET SR PO NR ×2 (08:30→09:00)
[2021-02-09] MEDS ORDERED: SODIUM CHLORIDE 0.9% 1,000 ML IV SCH (08:30)
[2021-02-09] MEDS ORDERED: SODIUM CHLORIDE 0.9% 500 ML IV ONE (08:30)
[2021-02-09] MEDS ORDERED: ASPIRIN 325MG EC TABLET PO SCH (09:00)
[2021-02-09] MEDS ORDERED: CEFTRIAXONE 1 G PREMIX 50 ML IV SCH (09:00)
[2021-02-09] MEDS ORDERED: CHOLECALCIFEROL (D3) 1000 UNIT TABLET PO SCH (09:00)
[2021-02-09] MEDS ORDERED: ZINC SULFATE 220 MG ( 50 ) CAPSULE PO SCH (09:00)
[2021-02-09] MEDS ORDERED: AZITHROMYCIN 500 MG in DEXT 5% WATER 250 ML IV SCH ×2 (09:00→10:00)
[2021-02-09 09:09] LABS: BG BASE EXCESS -6.6 mmol/L (-2.0-2.0); BG CARBOXYHEMOGLOBIN 0.3 % (0.5-1.5); BG DEOXYHEMOGLOBIN 18.7 % (0.0-5.0); BG FRACTION INSPIRED OXYGEN 100; BG HCO3 ACT 18.4 mmol/L (22.0-26.0); BG METHEMOGLOBIN 0.3 % (0.0-1.5); BG OXYGEN SATURATION 81.2 % (92.0-98.5); BG OXYHEMOGLOBIN 80.7 % (94.0-97.0); BG PH 7.338 (7.350-7.450); BG PO2 51.7 mmHg (75.0-100.0); BG SAMPLE SITE RIGHT BRACHIAL; BG TOTAL HEMOGLOBIN 11.5 g/dL (12.0-18.0); BG VENT MODE MASK - NRB
[2021-02-09] MEDS: CEFEPIME 1,000 MG in DEXTROSE 5% WATER 50 ML IV SCH ×2 (10:00→21:46)
[2021-02-09] MEDS ORDERED: SUCCINYLCHOLINE CHLORIDE 200MG/10ML IV ONE (10:01)
[2021-02-09] MEDS ORDERED: ETOMIDATE 2MG/ML 10ML VIAL IV ONE (10:01)
[2021-02-09] MEDS ORDERED: EPINEPHRINE 0.1MG/ML (1:10,000) 10ML SYR ONE (10:02)
[2021-02-09] MEDS ORDERED: DEXTROSE 50% WATER 50ML SYRINGE IV ONE ×4 (10:02→20:31)
[2021-02-09] MEDS ORDERED: SODIUM BICARBONATE 8.4% 1 MEQ/ML 50ML SYR IV ONE ×2 (10:02→15:30)
[2021-02-09] MEDS ORDERED: CALCIUM CHLORIDE 1GM/10ML SYR IV ONE (10:02)
[2021-02-09] MEDS: ASCORBIC ACID 500 MG TABLET PO SCH ×2 (10:04→21:54)
[2021-02-09] MEDS: FAMOTIDINE 20MG TABLET PO SCH ×2 (10:04→21:54)
[2021-02-09] MEDS ORDERED: FENTANYL CITRATE/PF 2,500 MCG in SODIUM CHLORIDE 0.9% 200 ML IV PRN (10:30)
[2021-02-09] MEDS ORDERED: MIDAZOLAM HCL 100 MG in DEXT 5% WATER 80 ML IV PRN (10:30)
[2021-02-09] MEDS ORDERED: PROPOFOL 10MG/ML 100ML 100 ML IV PRN (10:30)
[2021-02-09 10:52] LABS: BG BASE EXCESS -13.4 mmol/L (-2.0-2.0); BG CARBOXYHEMOGLOBIN 0.3 % (0.5-1.5); BG DEOXYHEMOGLOBIN 26.4 % (0.0-5.0); BG HCO3 ACT 16.6 mmol/L (22.0-26.0); BG METHEMOGLOBIN 0.1 % (0.0-1.5); BG OXYGEN SATURATION 73.5 % (92.0-98.5); BG OXYHEMOGLOBIN 73.2 % (94.0-97.0); BG PCO2 56.9 mmHg (35.0-45.0); BG PH 7.083 (7.350-7.450); BG PO2 56.5 mmHg (75.0-100.0); BG SAMPLE SITE RIGHT BRACHIAL; BG VENT MODE VENT - AC
[2021-02-09] MEDS ORDERED: SODIUM BICARBONATE 8.4% 1 MEQ/ML 50ML SYR IV NR (11:00)
[2021-02-09] MEDS ORDERED: MIDAZOLAM HCL 100 MG in SODIUM CHLORIDE 0.9% 80 ML IV PRN (11:15)
[2021-02-09] MEDS ORDERED: IPRATROPIUM/ALBUTEROL 0.5-3(2.5)MG/3ML NEB HHN SCH (12:00)
[2021-02-09 12:08] LABS: BG BASE EXCESS -16.9 mmol/L (-2.0-2.0); BG CARBOXYHEMOGLOBIN 0.3 % (0.5-1.5); BG FRACTION INSPIRED OXYGEN 100; BG HCO3 ACT 13.7 mmol/L (22.0-26.0); BG METHEMOGLOBIN 0.2 % (0.0-1.5); BG OXYGEN SATURATION 86.9 % (92.0-98.5); BG OXYHEMOGLOBIN 86.5 % (94.0-97.0); BG PCO2 53.6 mmHg (35.0-45.0); BG PH 7.025 (7.350-7.450); BG PO2 79.1 mmHg (75.0-100.0); BG SAMPLE SITE LEFT FEMORAL; BG TOTAL HEMOGLOBIN 11.2 g/dL (12.0-18.0); BG VENT MODE VENT - AC
[2021-02-09] MEDS: METRONIDAZOLE 500 MG PREMIX 100 ML IV SCH ×2 (12:38→18:09)
[2021-02-09] MEDS: SODIUM BICARBONATE 150 MEQ in DEXTROSE 5% WATER 1,000 ML IV SCH ×2 (13:40→20:36)
[2021-02-09] MEDS: EPINEPHRINE 10 MG in SODIUM CHLORIDE 0.9% 240 ML IV PRN ×4 (13:42→22:19)
[2021-02-09] MEDS: NOREPINEPHRINE 32 MG in DEXT 5% WATER 218 ML IV PRN ×2 (13:43→20:36)
[2021-02-09] MEDS: PHENYLEPHRINE 100 MG in DEXT 5% WATER 240 ML IV PRN ×2 (13:44→20:35)
[2021-02-09] MEDS ORDERED: ENOXAPARIN 30MG/0.3ML SYR SUBCUT SCH (16:00)
[2021-02-09] MEDS: VASOPRESSIN 20 UNIT in SODIUM CHLORIDE 0.9% 99 ML IV PRN ×2 (16:02→21:44)
[2021-02-09 17:34] LABS: NUCLEATED RED BLOOD CELLS 3 /100 WBC; PLATELET ESTIMATE DECREASED
[2021-02-09 17:46] LABS: CLARITY URINE TURBID (CLEAR); COLOR URINE YELLOW (YELLOW); KETONES URINE NEGATIVE (NEGATIVE); LEUKOCYTE ESTERASE URINE TRACE (NEGATIVE); NITRITE URINE NEGATIVE (NEGATIVE); OCCULT BLOOD URINE 3+ (NEGATIVE); PH URINE 5.5 (4.5-8.0); PROTEIN URINE 3+ (NEGATIVE); SPECIFIC GRAVITY URINE 1.013 (1.005-1.030); UROBILINOGEN URINE 0.2 E.U./dL (0.2-1.0)
[2021-02-09 18:35] LABS: CANNABINOID URINE SCREEN NEGATIVE (NEGATIVE); PHENCYCLIDINE URINE SCREEN NEGATIVE (NEGATIVE)
[2021-02-09 18:36] LABS: *AMPHETAMINES SCREEN URINE NEGATIVE (NEGATIVE); *BARBITURATES SCREEN URINE NEGATIVE (NEGATIVE); *BENZODIAZEPINES SCREEN URINE PRESUMTIVE POSITIVE (NEGATIVE); *COCAINE SCREEN URINE NEGATIVE (NEGATIVE); METHADONE URINE SCREEN NEGATIVE (NEGATIVE); OPIATES URINE SCREEN PRESUMTIVE POSITIVE (NEGATIVE)
[2021-02-09 19:33] LABS: HEMATOCRIT. 35.6 % (36.0-48.0); HEMOGLOBIN. 10.7 g/dL (12.0-16.0); MEAN CORPUSCULAR HEMOGLOBIN 34.1 pg (28.0-32.0); MEAN PLATELET VOLUME 9.9 fl (7.4-10.4); PLATELET 58 x1000/uL (130-400); RED BLOOD CELL COUNT 3.12 mill/uL (4.2-5.4)
[2021-02-09 19:43] LABS: FIBRINOGEN 399 mg/dL (200-400); INR 2.1; PROTHROMBIN TIME 21.4 sec (9.6-11.0)
[2021-02-09 19:53] LABS: D-DIMER > 35.20 mg/L FEU (<0.50)
[2021-02-09] MEDS ORDERED: DEXTROSE 50% WATER 50ML SYRINGE IV SCH (20:00)
[2021-02-09] MEDS ORDERED: DEXTROSE 50% WATER 50ML SYRINGE IV PRN ×2 (20:00→21:45)
[2021-02-09] MEDS ORDERED: DEXTROSE 5% WATER 1,000 ML IV SCH (21:00)
[2021-02-09 21:18] LABS: NUCLEATED RED BLOOD CELLS 5 /100 WBC; PLATELET ESTIMATE DECREASED
[2021-02-09] MEDS: DEXTROSE 50% WATER 50ML SYRINGE IV PRN ×3 (21:55→22:42)
[2021-02-09] MEDS ORDERED: DEXT 10% WATER 1,000 ML IV SCH (23:00)
[2021-02-10] VITALS (7 sets, daily range): BP systolic 0–135; BP diastolic 31–97
[2021-02-10] MEDS: DILTIAZEM HCL 60MG TABLET PO SCH
[2021-02-10] MEDS ORDERED: BLOOD SUGAR DIAGNOSTIC STRIP TEST SCH ×4
[2021-02-10] MEDS ORDERED: DEXTROSE 50% WATER 50ML SYRINGE IV PRN ×2
[2021-02-10] MEDS: METRONIDAZOLE 500 MG PREMIX 100 ML IV SCH (02:30)
[2021-02-10] MEDS: EPINEPHRINE 10 MG in SODIUM CHLORIDE 0.9% 240 ML IV PRN (02:42)
[2021-02-10] MEDS ORDERED: DEXTROSE 50% WATER 50ML SYRINGE IV ONE (03:23)
[2021-02-10] MEDS: DEXTROSE 50% WATER 50ML SYRINGE IV PRN (03:28)
[2021-02-10] MEDS ORDERED: EPINEPHRINE 0.1MG/ML (1:10,000) 10ML SYR ONE (08:01)
[2021-02-10] MEDS ORDERED: SODIUM BICARBONATE 8.4% 1 MEQ/ML 50ML SYR IV ONE (08:01)
== END 2021-02-10 04:03 | DRG 871 ==
LOC: ER 08:53 → MICUSO 13:07 → 8WST 02-09 07:41 → MICUSO 02-09 09:26 → ENRESERV 02-09 11:26 → MICUNO 02-09 11:55
PROVIDERS: ADMIT Internal Medicine; ATTEND Internal Medicine
PROC: 5A1935Z Respiratory Ventilation, Less than 24 Consecutive Hours (ICD-10-PCS; principal; 2021-02-09)
PROC: 5A12012 Performance of Cardiac Output, Single, Manual (ICD-10-PCS; 2021-02-09)
PROC: 06HY33Z Insertion of Infusion Device into Lower Vein, Percutaneous Approach (ICD-10-PCS; 2021-02-09)
PROC: 0BH17EZ Insertion of Endotracheal Airway into Trachea, Via Natural or Artificial Opening (ICD-10-PCS; 2021-02-09)
PROC: 5A12012 Performance of Cardiac Output, Single, Manual (ICD-10-PCS; 2021-02-10)
DX: A41.9 Sepsis, unspecified organism (principal); J96.01 Acute respiratory failure with hypoxia; N17.0 Acute kidney failure with tubular necrosis; R65.21 Severe sepsis with septic shock; J69.0 Pneumonitis due to inhalation of food and vomit; E46 Unspecified protein-calorie malnutrition; D61.818 Other pancytopenia; E87.2 Acidosis; I48.92 Unspecified atrial flutter; E87.6 Hypokalemia; E83.42 Hypomagnesemia; I46.9 Cardiac arrest, cause unspecified; I10 Essential (primary) hypertension; Z20.822 Contact with and (suspected) exposure to COVID-19; D52.9 Folate deficiency anemia, unspecified; D25.9 Leiomyoma of uterus, unspecified; K76.0 Fatty (change of) liver, not elsewhere classified; E16.2 Hypoglycemia, unspecified; F10.129 Alcohol abuse with intoxication, unspecified; I48.91 Unspecified atrial fibrillation; J45.909 Unspecified asthma, uncomplicated; Y90.8 Blood alcohol level of 240 mg/100 ml or more; Z88.8 Allergy status to other drugs, medicaments and biological substances; Z79.899 Other long term (current) drug therapy; Z79.1 Long term (current) use of non-steroidal anti-inflammatories (NSAID); Z90.49 Acquired absence of other specified parts of digestive tract; Z82.49 Family history of ischemic heart disease and other diseases of the circulatory system
CPT/HCPCS: 36415; 36600; 71045; 73564; 73590; 80048; 80053; 80305; 80320; 81003; 82375; 82550; 82553; 82607; 82728; 82746; 82805; 82962; 83540; 83550; 83615; 83735; 83880; 84100; 84145; 84439; 84443; 84484; 85025; 85379; 85384; 87070; 93005; 93306; 93970; 94002; 94640; 94660; 99285; J0330; J0456; J0692; J0696; J1650; J1885; J2250; J2270; J2370; J2405; J2704; J3411; J3475; J3480; J3490; J7030; J7050; J7060; J7070; U0003; U0005; G0480